=== PATIENT | male | born 2000 | race Hispanic/Latino ===

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

== ENCOUNTER 2021-08-20 20:38 | Emergency (ER) | payer OTHER, SELFPAY ==
[2021-08-20 20:39] VITALS: BP 118/83; PULSE 64; RESP 18; TEMP 36.6; O2SAT 100; BMI 23.6
--- NOTE | 2021-08-20 21:01 | EX.ED.GENINJ ---
HPI History of Present Illness Chief Complaint: Other, Pain/Inj Detail of Chief Complaint: Hit in the nose playing basketball. Informant: patient and parent Onset/Context/Timing Onset: Today Mechanism/Context: Blunt Injury Current Severity: Mild Maximum Severity: Mild Associated Symptoms Associated Symptoms: Negative for Parasthesias, Weakness, Loss of function, Inability to ambulate, Loss of consciousness and Amnesia Narrative Narrative: 20-year-old male no seen past medical or surgical history. Was playing basketball. As he went to help on defense he got hit in the nose. He has pain at the bridge of his nose and had bleeding at the time that lasted about 45 minutes but is since stopped. He denies any LOC or other complaints. Prior similar symptoms: No Recent Illness/Hospitalization: No PFSH PFSH Medical History no medical history no medical history Allergy/AdvReac Type Severity Reaction Status Date / Time No Known Allergies Allergy Verified 08/20/21 20:41 Surgical History no surgical history no surgical history ROS ROS ED ROS Narrative Denies. Review of Systems ROS Unobtainable: Denies due to encephalopathy Constitutional Constitutional ED: Denies fever(s) Eyes Eyes: Denies change in vision ENT ENT ED: Denies ear pain Cardiovascular Cardiovascular: Denies chest pain Respiratory/Chest Respiratory/Chest: Denies dyspnea Gastrointestinal Gastrointestinal: Denies abdominal pain Genitourinary Genitourinary ED: Denies dysuria Musculoskeletal Musculoskeletal: Denies myalgias Integumentary Denies rash Neurologic Neurologic: Denies headache(s) Psychiatric Psychiatric: Denies depression Endocrine Endocrinology: Denies polyuria Hematologic/Lymphatic Hematologic/Lymphatic: Denies easy bruising Allergic/Immunologic Allergic/Immunologic ED: Denies urticaria EXAM Physical Exam Narrative Exam Narrative: 20-year-old male no acute distress. Vital signs stable afebrile. H EENT exam bridge of his nose has a superficial laceration is not bleeding. He is tenderness and swelling to the bridge of his nose proximally. There is no blood or active bleeding from either nares. Posterior pharynx normal. Dentition intact. There is no other facial tenderness. Pupils round reactive light motions are intact. Neck nontender. Rest of his exam is normal. Neuro exam normal. GCS of 15. Exam consistent with nasal contusion versus nasal fracture. Const Vital Signs: 08/20/21 20:39 Temperature 97.9 F Temperature Source Temporal Pulse Rate 64 Respiratory Rate 18 Blood Pressure 118/83 H Blood Pressure Mean 94 Pulse Ox 100 Oxygen Delivery Method Room Air Positive well nourished and well developed; Negative for obese, cachectic, contractures or unkempt General Appearance ED: well developed and NAD; Negative for unkempt, cachectic or contractures Nutritional Appearance: Negative for cachectic or obese HEENT HEENT Narrative: Tenderness to the proximal bridge of his nose. No blood or active bleeding at this time. trauma and tenderness; Negative for atraumatic Eyes PERRL and EOMs intact bilaterally Neck full ROM General: Negative for tenderness Chest Wall inspection of chest normal and palpation of chest normal Resp normal respiratory effort and clear to auscultation bilaterally Auscultation: Negative for rales, rhonchi or wheezes Cardio regular rhythm, S1 normal heart sound, S2 normal heart sound and no murmurs Rate: regular rate GI normal to inspection, nondistended, normoactive bowel sounds, non-tender, non-distended and no masses Auscultation: normoactive bowel sounds Palpation: soft; Negative for tender, guarding or rebound tenderness present Back/Spine normal to inspection and no thoracic nor lumbar tenderness General Back: Negative for CVA tenderness Thoracic Spine / Upper Back: Negative for thoracic spinal tenderness Extremity normal to inspection and full ROM General Extremety ED: Negative for deformity, edema or tenderness General Extremity: Negative for deformity or edema Neuro oriented x3 and moves all extremities [place] Coma Scale: document GCS findings Spontaneous Obeys Commands Oriented 15 Sensorium / Orientation: alert, oriented to person, oriented to place and oriented to time; Negative for orientation impaired, lethargic or stuporous Motor Exam: strength 5/5 throughout Psych mental status grossly normal and thought process normal Appearance: Negative for unkempt Mood & Affect: Negative for depressed or tearful Skin no rashes or lesions noted, no wounds and no jaundice MDM MDM MDM Narrative Medical decision making narrative: 20-year-old hit in the nose playing basketball either has a nasal fracture is nondisplaced or contusion. Discussed when he has been on treatment. Ice. Afrin if rebleeds. Direct pressure. Motrin for pain and swelling. Follow-up with ENT long-term if he wants it further evaluated. Nothing to do differently at this time. Discharge Plan Triage Chief Complaint: Other, Pain/Inj ED Provider: Heriberto Tuttle Dx/Rx/DC Orders Clinical Impression: Closed fracture nasal bone, Epistaxis Instructions: ED Epistaxis (Adult), ED Nose Fracture, No X-Ray Primary Care Provider: Joshua Dominguez Referrals: Joshua Dominguez MD [Primary Care Provider] - Rock Barron MD [STAFF PHYSICIAN] - As Needed Activity Restrictions/Additional Instructions: Ice to your nose to decrease pain and swelling. Motrin and Tylenol for pain. If rebleeds hold direct pressure for 20 to 30 minutes. If unable to stop use Afrin nasal spray on both sides of his nose. If still unable to stop return. Long-term this should heal and he should do well if you do not like the way your nose looks or have trouble breathing on 1 side she can follow-up with the ear nose and throat doctors office to have it reevaluated. Disposition Disposition: Home, Self Care
== END 2021-08-20 21:15 | disposition home or self-care (01) ==
PROVIDERS: Emergency Provider Emergency Medicine; PCP Family Medicine; Visit Provider Emergency Medicine
DX: S02.2XXA Fracture of nasal bones, initial encounter for closed fracture (principal); R04.0 Epistaxis; W21.05XA Struck by basketball, initial encounter; Y93.67 Activity, basketball
CPT/HCPCS: 99282